=== PATIENT | male | born 1990 | race Two or more races ===

== ENCOUNTER 2019-04-21 07:25 | Outpatient (CLI) | payer OTHER | END 2019-04-21 07:33 | disposition home or self-care (01) | LOC: SONOGRAMA 07:25 | DX: R22.9 Localized swelling, mass and lump, unspecified (principal) ==

== ENCOUNTER 2024-06-29 19:49 | Emergency (ER) | payer OTHER ==
[~2024-06-29] VITALS: Ht 172.7 cm; Wt 113.4 kg
[2024-06-29] MEDS ORDERED: 0.9 % SODIUM CHLORIDE 1,000 ML IV SCH (20:15)
[2024-06-29 20:46] LABS: HEMATOCRIT 43.4 % (39.0-48.0); HEMOGLOBIN 15.3 g/dL (13-16.00); MEAN CELL VOLUME 81.4 fL (80.0-100.00); MEAN CORPUSCULAR HEMOGLOBIN 28.7 pg (27.00-32.0); MEAN CORPUSCULAR HGB CONC 35.2 g/dl (32.0-36.0); PLATELET COUNT 199 K/uL (150-450); RED BLOOD COUNT 5.33 M/uL (4.00-6.00)
[2024-06-29 21:04] LABS: PH,URINE 6.5 (5.0-8.0); URINE APPEARANCE Clear; URINE BILIRRUBIN Negative (NEGATIVE); URINE BLOOD Negative; URINE COLOR Yellow; URINE GLUCOSE Negative (NEGATIVE); URINE KETONE Negative (NEGATIVE); URINE LEUKOCYTE Negative; URINE NITRATE Negative; URINE PROTEIN Negative (NEGATIVE)
[2024-06-29 21:08] LABS: URINE BACTERIA 7.5 uL (0.0-1933); URINE WBC 1.8 uL (0.0-23.2)
[2024-06-29 21:09] LABS: ALBUMIN 4.1 gm/dL (3.4-5.0); BILIRUBIN TOTAL 0.51 mg/dL (0.3-1.2); CALCIUM 9.2 mg/dL (8.5-10.1); CREATININE SERUM 1.15 mg/dL (0.70-1.30); GFR 73.24; POTASSIUM 3.99 mEq/L (3.5-5.1); TOTAL PROTEIN 7.1 gm/dL (6.4-8.2)
[2024-06-29 21:12] LABS: URINE EPITHELIAL CELLS 0.3 uL (0.0-38.8)
== END 2024-06-29 22:15 | disposition home or self-care (01) ==
LOC: ER 19:50
PROVIDERS: Emergency Medicine
DX: R42 Dizziness and giddiness (principal); I10 Essential (primary) hypertension